=== PATIENT | female | born 1995 | race Caucasian/White ===

== ENCOUNTER 2017-05-06 09:21 | Emergency (ER) | payer SELFPAY ==
[2017-05-06] MEDS ORDERED: LORazepam 2 MG/ML INJ ONE (09:40)
[2017-05-06] MEDS ORDERED: ONDANSETRON 4 MG/2 ML VIAL ONE ×2 (09:42→12:47)
[2017-05-06] MEDS ORDERED: NS 1,000 ML IV ONE ×4 (09:45→11:44)
[2017-05-06] MEDS ORDERED: ONDANSETRON 4 MG/2 ML VIAL IVP ONE ×3 (09:47→12:49)
[2017-05-06] MEDS ORDERED: LORazepam 2 MG/ML INJ IVP ONE ×4 (09:47→14:28)
--- NOTE | 2017-05-06 09:56 | EDPHY ---
H & P Time Seen by Provider: 05/06/17 09:32 HPI/ROS: CHIEF COMPLAINT: Vomiting, alcohol withdrawal HISTORY OF PRESENT ILLNESS: 21-year-old female with a history of alcoholism presents to the emergency department by private vehicle with multiple episodes of vomiting over last 14 hr. The patient states that she typically drinks 10 shots per day. She went through treatment was recently discharged and then began drinking over new years. Patient last drank yesterday. She has vomited multiple times since then. No diarrhea. No hematemesis. She has never had an alcohol withdrawal seizure. Last menstrual was 2 weeks ago and she denies . Back pain. No urinary symptoms. She states that she has urinated very little today. The patient does not were contact inpatient treatment. She recently moved here from [place] like to go back home to [place]. REVIEW OF SYSTEMS: Constitutional: No fever, no chills. Eyes: No double or blurry vision. ENT: No sore throat. Respiratory: No cough, no shortness of breath. Cardiac: No chest pain. Gastrointestinal: Abdominal, vomiting. No diarrhea. Genitourinary: No dysuria. Musculoskeletal: No neck or back pain. Skin: No rashes. Neurological: No headache. Past Medical/Surgical History: Alcoholism Social History: Single from [place] Smoking Status: Current every day smoker Physical Exam: General Appearance: Alert, moderate distress. Afebrile. Eyes: Pupils equal and round. Extraocular motions are all intact. ENT: Mouth: Mucous membranes appear very dry Respiratory: No wheezing, rhonchi, or rales, lungs are clear to auscultation. Cardiovascular: Regular rate and rhythm. Gastrointestinal: Abdomen is soft and nontender, no masses, no rebound or guarding, bowel sounds normal. No CVA tenderness bilaterally Neurological: Alert and oriented x 3, cranial nerves II through XII grossly intact Skin: Warm and dry, no rashes. Musculoskeletal: Nontender to palpate along the cervical, thoracic or lumbar spine. Neck is supple. Extremities: Full range of motion and no peripheral edema. Psychiatric: Patient is oriented X 3, there is no agitation. Constitutional: Initial Vital Signs Temperature (C) 36.7 C 05/06/17 09:29 Heart Rate 115 H 05/06/17 09:29 Respiratory Rate 20 05/06/17 09:29 Blood Pressure 111/77 01/04/18 09:29 O2 Sat (%) 94 05/06/17 09:29 O2 Delivery Mode Room Air Allergies/Adverse Reactions: Penicillins Allergy (Verified 05/06/17 09:28) Home Medications: Medication Instructions Recorded Lexapro 05/06/17 Tri-Sprintec Tablet 05/06/17 Medical Decision Making ED Course/Re-evaluation: 21-year-old known alcoholic presents to the emergency department with withdrawal symptoms including vomiting. The patient had IV established and was given 3 L of IV normal saline, IV Zofran and IV Ativan. She was able to rest. CO2 was low at 11. Patient was able to supine water and keep this down. Her dad is in route to the hospital. Patient does not want inpatient treatment. She would like to be discharged home and will likely go back to [place]. Father is comfortable taking her home. I did offer admission because she was still tachycardic with a heart rate of 110, however the patient and father declined. Patient was given take-home pack of Ativan and Zofran to use as needed. She was encouraged to follow up in the ER if she developed recurring vomiting or any other concerns. Differential Diagnosis: Including but not limited to dehydration, gastroenteritis, alcohol withdrawal, electrolyte abnormality - Data Points Laboratory Results: Laboratory Results 05/06/17 09:40 05/06/17 09:40 05/06/17 05/06/17 05/06/17 09:40 09:40 09:40 WBC 8.29 10^3/uL 10^3/uL (3.80-9.50) RBC 5.12 10^6/uL 10^6/uL (4.18-5.33) Hgb 13.4 g/dL g/dL (12.6-16.3) Hct 40.1 % % (38.0-47.0) MCV 78.3 fL L fL (81.5-99.8) MCH 26.2 pg L pg (27.9-34.1) MCHC 33.4 g/dL g/dL (32.4-36.7) RDW 15.3 % H % (11.5-15.2) Plt Count 368 10^3/uL 10^3/uL (150-400) MPV 9.4 fL fL (8.7-11.7) Neut % (Auto) 76.0 % H % (39.3-74.2) Lymph % (Auto) 9.3 % L % (15.0-45.0) [place] % (Auto) 12.9 % % (4.5-13.0) Eos % (Auto) 0.5 % L % (0.6-7.6) Baso % (Auto) 1.1 % % (0.3-1.7) Nucleat RBC Rel Count 0.0 % % (0.0-0.2) Absolute Neuts (auto) 6.30 10^3/uL 10^3/uL (1.70-6.50) Absolute Lymphs (auto) 0.77 10^3/uL L 10^3/uL (1.00-3.00) Absolute Monos (auto) 1.07 10^3/uL H 10^3/uL (0.30-0.80) Absolute Eos (auto) 0.04 10^3/uL 10^3/uL (0.03-0.40) Absolute Basos (auto) 0.09 10^3/uL 10^3/uL (0.02-0.10) Absolute Nucleated RBC 0.00 10^3/uL 10^3/uL (0-0.01) Immature Gran % 0.2 % % (0.0-1.1) Immature Gran # 0.02 10^3/uL 10^3/uL (0.00-0.10) Sodium 140 mEq/L mEq/L (134-144) Potassium 5.0 mEq/L mEq/L (3.5-5.2) Chloride 98 mEq/L mEq/L (97-110) Carbon Dioxide 11 mEq/l L mEq/l (22-31) Anion Gap 31 mEq/L H mEq/L (8-16) BUN 10 mg/dL mg/dL (7-23) Creatinine 0.9 mg/dL mg/dL (0.6-1.0) Estimated GFR > 60 Glucose 78 mg/dL mg/dL (70-100) Calcium 10.4 mg/dL mg/dL (8.5-10.4) Beta HCG, Qual NEGATIVE Medications Given: Discontinued Medications Sodium Chloride (Ns) 1,000 mls @ 0 mls/hr IV ONCE ONE PRN Reason: Wide Open Stop: 05/06/17 09:46 Last Admin: 05/06/17 09:53 Dose: 1,000 mls Sodium Chloride (Ns) 1,000 mls @ 0 mls/hr IV ONCE ONE PRN Reason: Wide Open Stop: 05/06/17 09:48 Last Admin: 05/06/17 10:35 Dose: 1,000 mls Sodium Chloride (Ns) 1,000 mls @ 0 mls/hr IV ONCE ONE PRN Reason: Wide Open Stop: 05/06/17 10:35 Last Admin: 05/06/17 10:58 Dose: Not Given Sodium Chloride (Ns) 1,000 mls @ 3,000 mls/hr IV ONCE ONE Stop: 05/06/17 12:03 Last Admin: 05/06/17 11:45 Dose: 1,000 mls Lorazepam (Ativan Injection) 1 mg IVP EDNOW ONE Stop: 05/06/17 09:48 Last Admin: 05/06/17 09:49 Dose: 1 mg Lorazepam (Ativan Injection) 1 mg IVP EDNOW ONE Stop: 05/06/17 09:48 Last Admin: 05/06/17 09:48 Dose: Not Given Lorazepam (Ativan Injection) 1 mg IVP EDNOW ONE Stop: 05/06/17 14:26 Last Admin: 05/06/17 14:30 Dose: 1 mg Lorazepam (Ativan Injection) 1 mg IVP EDNOW ONE Stop: 05/06/17 14:29 Last Admin: 05/06/17 14:32 Dose: Not Given Lorazepam (Ativan 1 Mg Prepack#4) 1 btl TAKEHOME EDNOW ONE Stop: 05/06/17 15:09 Last Admin: 05/06/17 15:24 Dose: 1 btl Ondansetron HCl (Zofran) 4 mg IVP EDNOW ONE Stop: 05/06/17 09:48 Last Admin: 05/06/17 09:49 Dose: 4 mg Ondansetron HCl (Zofran) 4 mg IVP EDNOW ONE Stop: 05/06/17 09:48 Last Admin: 05/06/17 09:48 Dose: Not Given Ondansetron HCl (Zofran) 4 mg IVP EDNOW ONE Stop: 05/06/17 12:50 Last Admin: 05/06/17 12:50 Dose: 4 mg Ondansetron HCl (Zofran Odt 4 Mg Prepack#2) 1 btl TAKEBELÉN [place]ARROW ONE Stop: 05/06/17 15:09 Last Admin: 05/06/17 15:25 Dose: 1 btl Departure - Departure Disposition: Home, Routine, Self-Care Clinical Impression: Dehydration Alcohol withdrawal Qualifiers: Complication of substance-induced condition: uncomplicated Qualified Code(s): F10.230 - Alcohol dependence with withdrawal, uncomplicated Vomiting Qualifiers: Vomiting type: unspecified Vomiting Intractability: non-intractable Nausea presence: with nausea Qualified Code(s): R11.2 - Nausea with vomiting, unspecified Condition: Good Instructions: Lorazepam (By mouth), Ondansetron (By mouth), Dehydration (ED), Acute Nausea and Vomiting (ED), Alcohol Withdrawal (ED) Additional Instructions: Ativan as needed for symptom withdrawal. Zofran as needed for symptoms of nausea vomiting. Return emergency department if he developed recurring vomiting , if you have an alcohol withdrawal related seizure, or if you feel worse in any way. Referrals: [facility] [Outside] - As per Instructions
[2017-05-06 09:59] LABS: PLATELET COUNT 368 10^3/uL (150-400)
[2017-05-06] MEDS ORDERED: ONDANSETRON 4MG PREPACK#2 BTL TAKEHOME ONE (15:08)
[2017-05-06] MEDS ORDERED: LORAZEPAM 1 MG PREPACK#4 BTL TAKEHOME ONE (15:08)
[2017-05-06 15:27] VITALS: BP 129/73; PULSE 109; RESP 16; TEMP 98.6; O2SAT 98
== END 2017-05-06 15:43 | disposition home or self-care (01) ==
DX: E86.0 Dehydration (principal); F10.230 Alcohol dependence with withdrawal, uncomplicated; F17.200 Nicotine dependence, unspecified, uncomplicated
CPT/HCPCS: 96374; J2060; J2405